=== PATIENT | male | born 1935 | race Hispanic/Latino ===

== ENCOUNTER → 2018-10-29 | Outpatient (CLI) | payer MEDICARE ==
[~2018-10-29] MED LIST: AMLODIPINE PO; ASPIR 8181 MG PO; ATORVASTATIN CA20 MG PO; BACLOFEN10 MG PO; DECARA25000 UNIT PO; FLOMAX0.4 MG PO; GABAPENTIN300 MG PO; LOSARTAN POTAS100 MG PO; LYRICA100 MG PO; LYRICA50 MG PO; METHOTREXATE2.5 MG PO; PANTOPRAZOLE SO40 MG PO; PREDNISONE5 MG PO; RANITIDINE HCL300 MG PO; TYLENOL WITH C1 EACH PO
== END ==
LOC: EDSTATUS 07:00 → RAD 07:45 → OR 07:45
PROVIDERS: ATTEND Internal Medicine Gastroenterology
DX: Z01.818 Encounter for other preprocedural examination (principal); R10.13 Epigastric pain; R14.0 Abdominal distension (gaseous); K59.00 Constipation, unspecified; I10 Essential (primary) hypertension; Z68.21 Body mass index [BMI] 21.0-21.9, adult; Z53.8 Procedure and treatment not carried out for other reasons
CPT/HCPCS: 93005

== ENCOUNTER → 2018-10-30 | Day surgery (SDC) | payer MEDICARE ==
[~2018-10-30] MED LIST changes: +LIDOCAINE HCL 2% LOCAL INJ 5 ML SDV VIAL INJ ONE; +MIDAZOLAM HCL 2 MG/2 ML VIAL ONE; +PROPOFOL IV EMULSION 10 MG/ML 50 ML VIAL ONE
[2018-10-30 07:50] VITALS: BP 167/76
== END | disposition home or self-care (01) ==
LOC: OR 06:06
PROVIDERS: ATTEND Internal Medicine Gastroenterology
DX: K29.70 Gastritis, unspecified, without bleeding (principal); K22.2 Esophageal obstruction; K44.9 Diaphragmatic hernia without obstruction or gangrene; K59.00 Constipation, unspecified; I10 Essential (primary) hypertension; K21.9 Gastro-esophageal reflux disease without esophagitis; J44.9 Chronic obstructive pulmonary disease, unspecified; F17.210 Nicotine dependence, cigarettes, uncomplicated; Z79.82 Long term (current) use of aspirin
CPT/HCPCS: 43239; 88305; 88312; J2001; J2250; J2704